=== PATIENT | male | born 1960 | race Caucasian/White ===

== ENCOUNTER 2016-11-23 00:40 | Inpatient (IN) | payer OTHER, MEDICAID ==
[~2016-11-23] VITALS: Ht 165.1 cm; Wt 79.4 kg
[2016-11-23 01:43] LABS: BASOPHIL % 0.4 % (0-2); PLATELET COUNT 175 x10^3mcL (130-400)
[2016-11-23 01:47] LABS: RED CELL DISTRIBUTION WIDTH 15.2 % (11.5-14.5)
[2016-11-23 01:51] LABS: CALCIUM 8.5 mg/dL (8.5-10.1); CARBON DIOXIDE 21.1 mmol/L (21-32); CHLORIDE SERUM 103 mmol/L (98-107); CREATININE SERUM 0.9 mg/dL (0.7-1.3); GFR1 > 60 mL/min; GLUCOSE SERUM 247 mg/dL (74-106); POTASSIUM SERUM 3.4 mmol/L (3.5-5.1); SODIUM SERUM 138 mmol/L (136-145)
[2016-11-23 02:02] LABS: ALBUMIN 3.6 g/dL (3.4-5.0); ALKALINE PHOSPHATASE 152 U/L (46-116); ALT/SGPT 70 U/L (16-63); AST/SGOT 47 U/L (15-37); BILIRUBIN TOTAL 0.31 mg/dL (0.20-1.00); TOTAL PROTEIN, SERUM 7.1 g/dL (6.4-8.2)
[2016-11-23 02:06] LABS: CK-MB 0.5 ng/mL (0-3.6)
[2016-11-23 05:21] VITALS: BP 126/69
[2016-11-23 07:01] LABS: MAGNESIUM 1.9 mg/dL (1.8-2.4); PHOSPHOROUS 3.5 mg/dL (2.5-4.9)
[2016-11-23 07:10] LABS: FREE T4 1.07 ng/dL (0.76-1.46); FREE THYROXINE INDEX 2.9 ug/dL (1.4-4.5); T4(THYROXINE) 9.2 ug/dL (4.7-13.3)
[2016-11-23 10:16] VITALS: BP 118/59
[2016-11-23 11:46] LABS: T3 TOTAL 1.26 ng/mL
[2016-11-23 14:19] VITALS: BP 107/53
[2016-11-23 19:35] LABS: microscopic required? NO
[2016-11-23 19:39] LABS: UA SPECIFIC GRAVITY <=1.005 (1.005-1.035); urine erythrocyte NEGATIVE (NEGATIVE)
[2016-11-23 22:21] VITALS: BP 119/63
[2016-11-24 06:37] LABS: BASOPHIL % 0.6 % (0-2); PLATELET COUNT 173 x10^3mcL (130-400); RED CELL DISTRIBUTION WIDTH 14.9 % (11.5-14.5)
[2016-11-24 06:58] VITALS: BP 103/61
[2016-11-24 07:11] LABS: CALCIUM 8.4 mg/dL (8.5-10.1); CARBON DIOXIDE 23.9 mmol/L (21-32); CHLORIDE SERUM 105 mmol/L (98-107); CREATININE SERUM 0.6 mg/dL (0.7-1.3); GFR1 > 60 mL/min; GLUCOSE SERUM 126 mg/dL (74-106); MAGNESIUM 1.6 mg/dL (1.8-2.4); PHOSPHOROUS 3.8 mg/dL (2.5-4.9); POTASSIUM SERUM 3.9 mmol/L (3.5-5.1); SODIUM SERUM 142 mmol/L (136-145)
[2016-11-24 10:41] VITALS: BP 114/63
[2016-11-24 13:44] VITALS: BP 109/63
[2016-11-24 17:10] VITALS: BP 116/70
[2016-11-24 21:43] VITALS: BP 136/66
[2016-11-25 05:54] VITALS: BP 138/74
[2016-11-25 06:14] LABS: BASOPHIL % 0.6 % (0-2); PLATELET COUNT 173 x10^3mcL (130-400)
[2016-11-25 06:34] LABS: RED CELL DISTRIBUTION WIDTH 14.8 % (11.5-14.5)
[2016-11-25 06:49] LABS: CALCIUM 8.7 mg/dL (8.5-10.1); CARBON DIOXIDE 22.6 mmol/L (21-32); CHLORIDE SERUM 106 mmol/L (98-107); CREATININE SERUM 0.7 mg/dL (0.7-1.3); GFR1 > 60 mL/min; GLUCOSE SERUM 128 mg/dL (74-106); MAGNESIUM 1.7 mg/dL (1.8-2.4); PHOSPHOROUS 3.5 mg/dL (2.5-4.9); POTASSIUM SERUM 3.8 mmol/L (3.5-5.1); SODIUM SERUM 141 mmol/L (136-145)
[2016-11-25 10:14] VITALS: BP 133/73
[2016-11-25 14:00] VITALS: BP 165/69
[2016-11-25 18:57] VITALS: BP 118/73
[2016-11-25 22:11] VITALS: BP 124/70
[2016-11-26 06:05] VITALS: BP 139/66
[2016-11-26 06:23] LABS: BASOPHIL % 0.5 % (0-2); PLATELET COUNT 180 x10^3mcL (130-400)
[2016-11-26 06:40] LABS: CALCIUM 8.8 mg/dL (8.5-10.1); CARBON DIOXIDE 25.2 mmol/L (21-32); CHLORIDE SERUM 104 mmol/L (98-107); CREATININE SERUM 0.6 mg/dL (0.7-1.3); GFR1 > 60 mL/min; GLUCOSE SERUM 99 mg/dL (74-106); MAGNESIUM 1.7 mg/dL (1.8-2.4); PHOSPHOROUS 3.5 mg/dL (2.5-4.9); POTASSIUM SERUM 3.4 mmol/L (3.5-5.1); SODIUM SERUM 140 mmol/L (136-145)
[2016-11-26 06:48] LABS: RED CELL DISTRIBUTION WIDTH 15.1 % (11.5-14.5)
[2016-11-26] MEDS ORDERED: GLIMEPIRIDE2 M1 PO (08:31)
[2016-11-26] MEDS ORDERED: COUMADIN2.5 MG PO (08:35)
[2016-11-26 09:32] VITALS: BP 139/66
[2016-11-26 09:49] VITALS: BP 118/70
== END 2016-11-26 12:47 | disposition home health service (06) | DRG 74 ==
LOC: ED 00:40 → DU 04:16
PROVIDERS: Emergency Medicine; ADMIT Family Medicine
DX: G90.9 Disorder of the autonomic nervous system, unspecified (principal); D68.69 Other thrombophilia; I42.2 Other hypertrophic cardiomyopathy; E11.59 Type 2 diabetes mellitus with other circulatory complications; E11.65 Type 2 diabetes mellitus with hyperglycemia; I10 Essential (primary) hypertension; E87.6 Hypokalemia; K76.0 Fatty (change of) liver, not elsewhere classified; F32.9 Major depressive disorder, single episode, unspecified; E03.9 Hypothyroidism, unspecified; Z87.891 Personal history of nicotine dependence; Z95.2 Presence of prosthetic heart valve; Z79.01 Long term (current) use of anticoagulants; Z79.4 Long term (current) use of insulin
CPT/HCPCS: 82962; 83880; 84439; 92610; 97110-GP; 97116-GP; 97530-GP; J1644; J7030; J8597; Q0092; Q9967